=== PATIENT | female | born 1950 | race Caucasian/White ===

== ENCOUNTER → 2020-07-07 | Outpatient (CLI) | payer MEDICARE ==
[~2020-07-07] MED LIST: ALBU90AE INH; AMIT25TA PO; CHOL10003 PO; DULA1.5P INJ; ESTR0.5T PO; IBUP-1223 PO; LACT1CAP37 PO; LISI-170 PO; MEDR5TAB2 PO; METF500T17 PO; METO-93 PO; MULT-717 PO; ROSU5TAB PO
[2020-07-07 15:34] LABS: BASOPHILS # (AUTO) 0.01 x10^3/uL (0-0.1); BASOPHILS % (AUTO) 0 % (0-1); EOSINOPHILS # (AUTO) 0.02 x10^3/uL (0-0.4); EOSINOPHILS % (AUTO) 0 % (1-7); LYMPHOCYTES # (AUTO) 3.24 x10^3/uL (1-3.4); LYMPHOCYTES % (AUTO) 38 % (22-44); MD NO; MEAN CORPUSCULAR HEMOGLOBIN 29.7 pg (27.0-34.8); MEAN CORPUSCULAR HGB CONC 32.7 g/dL (32.4-35.8); MEAN CORPUSCULAR VOLUME 90.8 fL (80-100); MEAN PLATELET VOLUME 7.6 fL (7.4-10.4); MONOCYTES # (AUTO) 0.71 x10^3/uL (0.2-0.8); MONOCYTES % (AUTO) 8 % (2-9); NEUTROPHILS # (AUTO) 4.61 x10^3/uL (1.8-6.8); NEUTROPHILS % (AUTO) 54 % (42-75); PLATELET COUNT 257 x10^3/uL (130-400); RED BLOOD COUNT 4.59 x10^6/uL (3.82-5.3); RED CELL DISTRIBUTION WIDTH 13.4 % (9.6-15.2)
[2020-07-07 15:42] LABS: ALBUMIN 3.8 g/dL (3.4-5.0); ANION GAP 7 mmol/L (5-15); CALCIUM 8.9 mg/dL (8.5-10.1); CHLORIDE 109 mmol/L (98-107)
[2020-07-07 15:46] LABS: ALANINE AMINOTRANSFERASE 26 U/L (12-78); ALKALINE PHOSPHATASE 37 U/L (45-117); BILIRUBIN,TOTAL 0.4 mg/dL (0.2-1.0); CREATININE 0.77 mg/dL (0.55-1.02); TOTAL PROTEIN 7.2 g/dL (6.4-8.2)
== END | disposition home or self-care (01) ==
LOC: STAR 14:15
PROVIDERS: ATTEND Orthopaedic Surgery
DX: Z01.818 Encounter for other preprocedural examination (principal); M25.562 Pain in left knee; M17.12 Unilateral primary osteoarthritis, left knee
CPT/HCPCS: 36415; 80053; 85025; 87081; 93005

== ENCOUNTER → 2020-07-15 | Outpatient (CLI) | payer MEDICARE | END | disposition home or self-care (01) | LOC: STAR 09:55 | PROVIDERS: ATTEND Anesthesiology | DX: Z01.818 Encounter for other preprocedural examination (principal); Z11.59 Encounter for screening for other viral diseases | CPT/HCPCS: 36415; 87635 ==

== ENCOUNTER 2020-07-19 09:38 | Observation (INO) | payer MEDICARE ==
[~2020-07-19] VITALS: Ht 170.2 cm; Wt 98.0 kg
[~2020-07-19 09:38] MED LIST changes: +EPINEPHRINE 1 MG/ML, 1ML ONE; +FENTANYL PF 100 MCG/2ML ONE; +KETOROLAC 60 MG/2 ML ONE; +MIDAZOLAM 1 MG/ML, 2ML ONE; +ROPIvacaine/PF 0.2%, 20 ML ONE; +SODIUM CHLORIDE 0.9% 50 ML ONE; +TRANEXAMIC ACID 100 MG/ML, 10ML ONE
[2020-07-19 09:57] VITALS: BP 144/86
[2020-07-19] MEDS ORDERED: LACTATED RINGERS 1,000 ML IV SCH (10:03)
[2020-07-19] MEDS ORDERED: CHLORHEXIDINE 15 ML UDC ONE (10:07)
[2020-07-19] MEDS ORDERED: CHLORHEXIDINE 15 ML UDC MM ONE (10:30)
[2020-07-19] MEDS ORDERED: CLINDAMYCIN 150 MG/ML, 6ML ONE (10:36)
[2020-07-19] MEDS ORDERED: FENTANYL PF 100 MCG/2ML ONE ×3 (11:51→12:56)
[2020-07-19] MEDS ORDERED: PROPOFOL 10 MG/ML, 20ML ONE (12:13)
[2020-07-19] MEDS ORDERED: LIDOCAINE-MPF 2% ,5ML ONE (12:13)
[2020-07-19] MEDS ORDERED: CEFAZOLIN 1,000 MG ONE (12:13)
[2020-07-19] MEDS ORDERED: BUPIVACAINE/PF 0.5% ONE (12:13)
[2020-07-19] MEDS ORDERED: ONDANSETRON 2MG/ML, 2ML ONE (12:13)
[2020-07-19] MEDS ORDERED: DEXAMETHASONE 4 MG/ML, 1ML ONE (12:13)
[2020-07-19] MEDS ORDERED: BUPIVACAINE/PF 0.25% ONE (12:13)
[2020-07-19] MEDS ORDERED: LABETALOL 5MG/ML, 20ML IV PRN (12:30)
[2020-07-19] MEDS ORDERED: MEPERIDINE/PF 25MG/0.5ML IVPush PRN (12:30)
[2020-07-19] MEDS ORDERED: ALBUTEROL SULFATE 2.5 MG/3 ML NPPB PRN (12:30)
[2020-07-19] MEDS ORDERED: ACETAMINOPHEN 325 MG TABLET PO PRN (12:30)
[2020-07-19] MEDS ORDERED: FENTANYL PF 100 MCG/2ML IV PRN (12:30)
[2020-07-19] MEDS ORDERED: PROMETHAZINE 25 MG/ML, 1ML IVPush PRN (12:30)
[2020-07-19] MEDS ORDERED: hydrALAzine 20 MG/ML, 1ML IV PRN (12:30)
[2020-07-19] MEDS ORDERED: OXYcodone 5 MG/5 ML ORAL.SOL UDC PO PRN (12:30)
[2020-07-19] MEDS ORDERED: LORazepam 2 MG/ML, 1ML IVPush PRN (12:30)
[2020-07-19] MEDS ORDERED: OXYcodone 5 MG/5 ML ORAL.SOL UDC ONE (13:26)
[2020-07-19] MEDS ORDERED: ACETAMINOPHEN 325 MG TABLET ONE (13:27)
[2020-07-19] MEDS ORDERED: HYDROmorphone 1 MG/ML, 1ML INJ ONE (13:27)
[2020-07-19] MEDS ORDERED: ACETAMINOPHEN 650 MG/20.3 ML UDC ONE (13:27)
[2020-07-19] MEDS ORDERED: TRANEXAMIC ACID 1,000 MG in SODIUM CHLORIDE 0.9% 100 ML IVPB ONE (13:30)
[2020-07-19] MEDS ORDERED: SENNA/DOCUSATE TABLET PO PRN (13:30)
[2020-07-19] MEDS ORDERED: PSYLLIUM PACKET PO PRN (13:30)
[2020-07-19] MEDS ORDERED: POLYETHYLENE GLYCOL 17 GM PACKET PO PRN (13:30)
[2020-07-19] MEDS ORDERED: HYDROmorphone 1 MG/ML, 1ML INJ IVPush PRN (13:30)
[2020-07-19] MEDS ORDERED: OXYcodone IR 5MG TABLET PO PRN (13:30)
[2020-07-19] MEDS: LABETALOL 5MG/ML, 20ML IVPush SCH ×2 (13:30→21:30)
[2020-07-19] MEDS: HYDROmorphone 1 MG/ML, 1ML INJ IVPush PRN ×3 (13:30→14:05)
[2020-07-19] MEDS ORDERED: PROMETHAZINE 25 MG/ML, 1ML IM PRN (13:30)
[2020-07-19] MEDS ORDERED: MAGNESIUM HYDROXIDE 8%, 30ML UDC PO PRN (13:30)
[2020-07-19] MEDS ORDERED: ONDANSETRON 2MG/ML, 2ML IVPush PRN (13:30)
[2020-07-19] MEDS ORDERED: BISACODYL 10 MG SUPP PR PRN (13:30)
[2020-07-19] MEDS ORDERED: ALUMINUM/MAG/SIMETHICONE 30 ML UDC PO PRN (13:30)
[2020-07-19] MEDS ORDERED: PROMETHAZINE 12.5 MG SUPP PR PRN (13:30)
[2020-07-19] MEDS ORDERED: DIPHENHYDRAMINE 50 MG/ML, 1ML IVPush PRN (13:30)
[2020-07-19] MEDS ORDERED: DIAZEPAM 5 MG TABLET PO PRN (13:30)
[2020-07-19 14:45] VITALS: BP 126/78
[2020-07-19] MEDS ORDERED: ALBUTEROL HFA 90 MCG/SPRAY INH PRN (17:00)
[2020-07-19] MEDS: KETOROLAC 30 MG/1 ML IV SCH (17:52)
[2020-07-19] MEDS: ACETAMINOPHEN 500 MG TABLET PO SCH (17:52)
[2020-07-19] MEDS: metFORMIN 500 MG TABLET PO SCH (17:52)
[2020-07-19 18:31] VITALS: BP 94/59
[2020-07-19] MEDS ORDERED: TAMSULOSIN 0.4 MG CAP.ER.24H PO ONE (19:00)
[2020-07-19] MEDS: SODIUM CHLORIDE 0.9% 1,000 ML IV SCH (19:30)
[2020-07-19] MEDS: DOCUSATE 100 MG CAPSULE PO SCH (20:29)
[2020-07-19] MEDS: CEFAZOLIN PMX 1GM/50ML 50 ML IVPB SCH (20:29)
[2020-07-19] MEDS: OXYcodone IR 5MG TABLET PO PRN (20:30)
[2020-07-19] MEDS ORDERED: ATORVASTATIN 20 MG TABLET PO SCH (21:00)
[2020-07-19] MEDS ORDERED: LISINOPRIL 20 MG TABLET PO SCH (21:00)
[2020-07-19] MEDS ORDERED: AMITRIPTYLINE 25 MG TABLET PO SCH (21:00)
[2020-07-19] MEDS: INSULIN LISPRO 100 UNITS/ML, PEN SQ-INSULIN SCH (23:02)
[2020-07-20 00:44] VITALS: BP 101/55
[2020-07-20] MEDS: ACETAMINOPHEN 500 MG TABLET PO SCH ×2 (01:18→06:30)
[2020-07-20] MEDS: OXYcodone IR 5MG TABLET PO PRN ×3 (01:18→09:33)
[2020-07-20] MEDS: KETOROLAC 30 MG/1 ML IV SCH ×2 (01:19→09:00)
[2020-07-20] MEDS: LABETALOL 5MG/ML, 20ML IVPush SCH (03:54)
[2020-07-20 04:18] VITALS: BP 101/64
[2020-07-20] MEDS: CEFAZOLIN PMX 1GM/50ML 50 ML IVPB SCH (04:27)
[2020-07-20] MEDS ORDERED: ASPIRIN 81 MG TABLET EC PO SCH (06:00)
[2020-07-20] MEDS ORDERED: METOPROLOL SUCCINATE 50 MG TAB.ER.24H PO SCH (06:00)
[2020-07-20] MEDS ORDERED: DEXAMETHASONE 4 MG/ML, 1ML IVPush ONE (06:00)
[2020-07-20 06:50] VITALS: BP 91/57
[2020-07-20] MEDS: DOCUSATE 100 MG CAPSULE PO SCH (07:40)
[2020-07-20] MEDS: INSULIN LISPRO 100 UNITS/ML, PEN SQ-INSULIN SCH (07:41)
[2020-07-20] MEDS: metFORMIN 500 MG TABLET PO SCH (07:41)
[2020-07-20] MEDS: SODIUM CHLORIDE 0.9% 1,000 ML IV SCH (08:50)
[2020-07-20] MEDS ORDERED: MULTIVITAMINS/MINERALS TABLET PO SCH (09:00)
[2020-07-21] MEDS ORDERED: TRULICITY 1.5 MG SC SCH (09:00)
== END 2020-07-20 09:45 | disposition home or self-care (01) ==
LOC: OUT 09:38 → ORIP 13:05 → 4NE 14:42 → DCLOUNGE 07-20 09:40
PROVIDERS: ADMIT Orthopaedic Surgery; ATTEND Orthopaedic Surgery
DX: M17.12 Unilateral primary osteoarthritis, left knee (principal); G31.89 Other specified degenerative diseases of nervous system; J45.909 Unspecified asthma, uncomplicated; E11.9 Type 2 diabetes mellitus without complications; I10 Essential (primary) hypertension; E66.9 Obesity, unspecified; Z79.899 Other long term (current) drug therapy; Z96.652 Presence of left artificial knee joint
CPT/HCPCS: 27447; 73560; 82962; 96365; 96366; 96375; 96376; 97110; 97161; C1713; C1776; G0378; J0171; J0690; J1100; J1170; J1815; J1885; J2250; J2405; J2704; J2795; J3010; J3490; J7120